=== PATIENT | male | born 1945 | race American Indian/Alaskan Native ===

== ENCOUNTER 2020-09-20 08:46 | Day surgery (SDC) | payer MEDICARE ==
[~2020-09-20] VITALS: Ht 175.3 cm; Wt 79.9 kg
[2020-09-20] VITALS (10 sets, daily range): BP systolic 106–154; BP diastolic 67–107; PULSE 81–92; TEMP 97.7
[~2020-09-20 08:46] MED LIST: AMBIEN 10MG10 MG PO
[2020-09-20] MEDS ORDERED: TOPROL XL 25MG25 MG PO (09:38)
[2020-09-20 09:48] LABS: CALCIUM 9.9 mg/dL (8.4-10.2); CREATININE, serum 0.87 (0.66-1.25); POTASSIUM 4.2 mmol/L (3.4-5.0)
[2020-09-20 09:50] LABS: HEMATOCRIT 43.7 % (42.0-52.0); HEMOGLOBIN 14.4 g/dl (13.5-18.0); MEAN CELL VOLUME 87 fl (80.0-100.0); MEAN CORPUSCULAR HEMOGLOBIN 29 pg (27.0-31.0); MEAN CORPUSCULAR HGB CONC 33 g/dl (33.0-37.0); MEAN PLATELET VOLUME 9.6 fl (7.4-10.4); PLATELET COUNT 338 K/mm3 (130-400); RED BLOOD COUNT 5.04 M/mm3 (4.20-5.60); REDCELL DISTRIBUTION WIDTH-CV 14.2 % (11.5-14.5)
[2020-09-20 09:54] LABS: PROTHROMBIN TIME 11.3 SECONDS (9.7-12.8)
[2020-09-20 09:57] LABS: PARTIAL THROMBOPLASTIN TIME 31.6 SECONDS (26.0-37.0)
[2020-09-20] MEDS ORDERED: ALBUTEROL0.83 MG/ML IH (09:57)
[2020-09-20] MEDS ORDERED: ASPIRIN E.C. 8181 MG PO (09:59)
[2020-09-20] MEDS ORDERED: LIPITOR 40MG TA40 MG PO (11:56)
--- NOTE | 2020-09-20 12:04 | NUR ---
Sterile dressing to rt femoral vein access site remains clean, dry and intact. Area is soft to palpation. Pt instructed to rest rt arm and expresses understanding. Tele monitoring on in room, but cannot be transmitted through to tele desk. Additionally no tele box is available to place on pt. Pt will remain on monitoring in room for time being, and will be moved to next available room for tele monitoring at tele desk.
--- NOTE | 2020-09-20 13:30 | NUR ---
Pt continues to rest comfortably in bed. TR band remains in place with no signs of complication. Rt groin venous access site dressing remains clean, dry and intact. Pt continues in sinus rhythm on monitoring manager. Call light in reach.
--- NOTE | 2020-09-20 15:10 | NUR ---
DC instructions reviewed with pt, he expresses understanding. Air was removed from TR band in 2ml increments without issue. Rt radial puncture site dressed with folded 2x2 and gauze. IV DC'd with catheter intact, and bleeding controlled at site. Pt has tolerated PO without issue, and ambulates short distances with steady gait. He is assisted out to friend's car by wheelchair with all personal belongings.
== END 2020-09-20 15:10 | disposition home or self-care (01) ==
LOC: COL.CAR 08:46
PROVIDERS: Internal Medicine Cardiovascular Disease
DX: I25.10 Atherosclerotic heart disease of native coronary artery without angina pectoris (principal); R94.39 Abnormal result of other cardiovascular function study; I27.20 Pulmonary hypertension, unspecified
CPT/HCPCS: J1644; J2250; J3010; Q9967

== ENCOUNTER 2022-02-22 12:38 | Day surgery (SDC) | payer MEDICARE, MEDICAID ==
[2022-02-22] VITALS (9 sets, daily range): BP systolic 131–154; BP diastolic 64–97; PULSE 72–87; TEMP 97.4–99.4
[~2022-02-22] VITALS: Ht 175.3 cm; Wt 72.8 kg
[~2022-02-22 12:38] MED LIST changes: +ALBUTEROL0.83 MG/ML IH; +ASPIRIN E.C. 8181 MG PO; +LIPITOR 40MG TA40 MG PO; +TOPROL XL 25MG25 MG PO
[2022-02-22] MEDS ORDERED: ASPIRIN 81M81 MG/TA2 PO (13:46)
[2022-02-22] MEDS ORDERED: OSCAL 500 TAB500 MG PO (13:48)
[2022-02-22] MEDS ORDERED: CALCIUM 600-D 61 TAB PO (13:51)
[2022-02-22] MEDS ORDERED: PEPCID 20MG TAB20 MG PO (13:52)
[2022-02-22] MEDS ORDERED: FLOMAX 0.40.4 MG/CAP PO (13:53)
[2022-02-22] MEDS ORDERED: LOPRESSOR 225 MG/TAB PO (13:54)
[2022-02-22] MEDS ORDERED: SYNTHROID 0.0.025 MG PO (13:54)
[2022-02-22] MEDS ORDERED: ZOLOFT 50MG50 MG PO (13:55)
[2022-02-22] MEDS ORDERED: VITAMIND3 5000 PO (13:56)
[2022-02-22] MEDS ORDERED: SPIRIVA RE2.5 MCG/Ac IH (13:56)
[2022-02-22] MEDS ORDERED: MUCINEX1200 MG PO (13:58)
[2022-02-22] MEDS ORDERED: AMBIEN 10MG10 MG PO ×2 (13:59→14:01)
[2022-02-22] MEDS ORDERED: IPRATROPIUM BROM3 M1 IH (14:03)
[2022-02-22] MEDS ORDERED: ATROVENT I0.2 MG/1 M IH (14:05)
--- NOTE | 2022-02-22 16:25 | NUR ---
to room per bed from pACu, awake and alert, IV infusing per dial a flow, hagan cath patent with CBI infusing at moderate rate and slowed at this time, O2 on at 2L/NC as per at home, denies pain or needs at this time
--- NOTE | 2022-02-22 16:45 | NUR ---
provided water and tolerates well, shift assessment completed, see interventions for further info,
--- NOTE | 2022-02-22 17:00 | NUR ---
CBI continues at a slow rate and urine remains light yellow
--- NOTE | 2022-02-22 17:51 | NUR ---
instructed on ordering supper, CBI continues slow and urine remains clear light yellow
--- NOTE | 2022-02-22 17:57 | NUR ---
instructed on ordering something to eat
--- NOTE | 2022-02-22 18:41 | NUR ---
bedside shift report given to STEPHANIE Baca
--- NOTE | 2022-02-22 21:30 | NUR ---
Pt. sitting up in bed watching TV at this time. Pt. is A&OX3, assessment complete. IV to lt. hand patent, IV fluids infusing per orders. Pt. denies pain. Jackson catheter with CBI running slow. Urine is clear yellow at this time. Pt. denies further needs, call light within reach.
[2022-02-23 00:17] VITALS: BP 132/69; PULSE 68; TEMP 97.6
[2022-02-23 03:03] VITALS: BP 138/72; PULSE 76; TEMP 98.8
[2022-02-23 08:00] VITALS: BP 107/58; PULSE 77; TEMP 97.9
--- NOTE | 2022-02-23 08:00 | NUR ---
PATIENT IS A&O AND SITTING UP IN BED LOOKING AT BREAKFAST MENU. VSS. 02 @ 2L PER NC WITH SATS IN UPPER 90'S. PATIENT HAS COPD AND WEARS 02 @ 2L AT BASELINE. NO C/O PAIN OR NAUSEA. IV FLUIDS INFUSING INTO LEFT HAND VIA PUMP. AM MEDS GIVEN. STRANGE TO DD WITH MOD AMOUNTS OF CLEAR YELLOW URINE WITH CBI INFUSING SLOWLY. HEAD TO TOE ASSESSMENT COMPLETE. NO OTHER NEEDS. CALL LIGHT IN REACH.
--- NOTE | 2022-02-23 09:11 | NUR ---
Initial visit; Patient from [place] and loves his [employer]stie Inspector and [employer] Home. He states he goes to prayer meetings and holiness every Saturday. His Crosstie Inspector was here to see him yesterday. offered God's blessings and will keep Ed in her prayers. He thanked Private Branch Exchange Installer and wished her God's blessings as well.
--- NOTE | 2022-02-23 10:42 | NUR ---
SW met with patient to complete intake. Patient provides that he lives alone in [place], however he was staying at [facility] prior to coming to the hospital. Patient states that upon dc he will be going back to [facility] for 2 days and then back to his home. Patient states that he does not have any family, but wanted to provide information for his girlfriend Halie Orozco [phone]. Patient states that he has been using a walker and is independent with ADLs. PCP is Dr. Duval, and pharmacy is in [place]. Patient provides that he appointed Halie Orozco as DPOA/HC. SW will continue to follow. DC Plan: Patient provides he is going back to [facility] for 2 days then back to his home in [place]
--- NOTE | 2022-02-23 11:15 | NUR ---
TALKED WITH UROLOGIST, SEE ORDERS FOR P&P. PRIMED 300CC OF CBI AND DC'D STRANGE. CATH TIP INTACT AND PATIENT TOLERATED WELL. PATIENT GIVE POST STRANGE EDUCATION AND STARTED ON 6 CUP ROUTINE. URINAL AT BEDSIDE. WILL MONITOR.
[2022-02-23 12:00] VITALS: BP 96/49; PULSE 74; TEMP 97.9
[2022-02-23 15:06] VITALS: BP 111/55; PULSE 82; TEMP 98.3
--- NOTE | 2022-02-23 15:15 | NUR ---
PATIENT HAS COMPLETED 3 OF HIS 6 CUP ROUTINE SO FAR. URINE IS CLEAR YELLOW. APPROX 100CC OF URINE WITH EACH VOID. NURSING ENCOURAGED TO FORCE FLUIDS. [facility] CALLED FOR PATIENT UPDATE AND WILL BE HERE AT 1630 TO PICK PATIENT UP IT IS AN HOUR AND HALF DRIVE BACK. UPDATED.
--- NOTE | 2022-02-23 16:30 | NUR ---
PATIENT'S RIDE IS HERE FROM [facility]. PATIENT IS DRESSED, PACKED AND READY TO GO. DISCHARGE INSTRUCTIONS GIVEN AND ANSWERED QUESTIONS/CONCERNS. DC'D IV SITE AND COVERED WITH GAUZE & COBAN. PATIENT DISCHARGED.
== END 2022-02-23 16:40 ==
LOC: SDCO 12:38 → SURG 17:00 → SDCO 02-23 16:40
DX: N40.1 Benign prostatic hyperplasia with lower urinary tract symptoms (principal); R33.8 Other retention of urine; Z87.891 Personal history of nicotine dependence
CPT/HCPCS: OP; J0690; J1100; J2405; J2704; J3010; J7120